=== PATIENT | female | born 1970 | race Caucasian/White ===

== ENCOUNTER 2017-02-25 12:12 | Emergency (ER) | payer BC | END 2017-02-25 14:47 | disposition home or self-care (01) | LOC: ER 12:12 | DX: M54.5 Low back pain (principal); Z86.61 Personal history of infections of the central nervous system; Z98.51 Tubal ligation status; Z87.891 Personal history of nicotine dependence; Z79.899 Other long term (current) drug therapy | CPT/HCPCS: 96374; 96375; J1885 ==